=== PATIENT | male | born 1950 ===

== ENCOUNTER 2020-11-09 09:16 | Emergency (ER) | payer OTHER ==
[~2020-11-09] VITALS: Ht 162.6 cm; Wt 86.2 kg
[2020-11-09] MEDS ORDERED: CRESTOR5 MG (10:51)
[2020-11-09] MEDS ORDERED: COLESTEROL (10:52)
[2020-11-09] MEDS ORDERED: SINGULAIR 10MG10 MG (10:52)
[2020-11-09] MEDS ORDERED: VERELAN240 MG (10:53)
[2020-11-09] MEDS ORDERED: ALDACTONE25 MG (10:53)
[2020-11-09] MEDS ORDERED: [UNRECOGNIZED DRUG - CODE] (10:54)
[2020-11-09] MEDS ORDERED: BUTALB-ACETAMI1 EAC2 PO (16:51)
[2020-11-09] MEDS ORDERED: RELPAX20 MG PO (16:51)
== END 2020-11-09 17:08 | disposition home or self-care (01) ==
LOC: ER 09:16
DX: G43.809 Other migraine, not intractable, without status migrainosus (principal)

== ENCOUNTER 2021-11-23 06:25 | Emergency (ER) | payer OTHER ==
[~2021-11-23] VITALS: Ht 162.6 cm; Wt 77.1 kg
[~2021-11-23 06:25] MED LIST: ALDACTONE25 MG; BUTALB-ACETAMI1 EAC2 PO; COLESTEROL; CRESTOR5 MG; RELPAX20 MG PO; SINGULAIR 10MG10 MG; VERELAN240 MG; [UNRECOGNIZED DRUG - CODE]
== END 2021-11-23 12:33 | disposition home or self-care (01) ==
LOC: ER 06:25
DX: R55 Syncope and collapse (principal); R53.1 Weakness; G43.909 Migraine, unspecified, not intractable, without status migrainosus; Z20.822 Contact with and (suspected) exposure to COVID-19; Z88.6 Allergy status to analgesic agent